=== PATIENT | female | born 1970 | race Caucasian/White ===

== ENCOUNTER → 2018-03-09 | Outpatient (CLI) | payer OTHER ==
[~2018-03-09] MED LIST: CYCL-331 PO; PRED50TA PO
--- NOTE | 2018-03-23 10:01 | RAD ---
DATE: 03/09/2018 EXAM: DIGITAL SCREEN BILAT W/CAD HISTORY: Routine screening COMPARISON: 03/06/2016, 12/04/2012 This study was interpreted with the benefit of Computerized Aided Detection (CAD). Breast Density: SCATTERED The breast parenchyma shows scattered fibroglandular densities. Breast parenchyma level B. FINDINGS: There is mild breast asymmetry with increased densities superolaterally in the left breast compared to the right. This was also evident on previous studies including the 12/04/2012 exam. This is probably a normal variant or may be related to previous right breast surgery. No new or enlarging breast densities are seen. No suspicious microcalcifications are evident. IMPRESSION: Stable mammograms without evidence of malignancy. BI-RADS CATEGORY: 2 BENIGN FINDING(S) RECOMMENDED FOLLOW-UP: 12M 12 MONTH FOLLOW-UP PQRS compliance statement: Patient information was entered into a reminder system with a target due date for the next mammogram. Mammography is a sensitive method for finding small breast cancers, but it does not detect them all and is not a substitute for careful clinical examination. A negative mammogram does not negate a clinically suspicious finding and should not result in delay in biopsying a clinically suspicious abnormality. "Our facility is accredited by the [employer] Mammography [employer]."
== END | disposition home or self-care (01) ==
LOC: MAMMO 12:40
PROVIDERS: ATTEND Family Medicine
DX: Z12.31 Encounter for screening mammogram for malignant neoplasm of breast (principal)
CPT/HCPCS: 77067

== ENCOUNTER → 2019-07-02 | Outpatient (CLI) | payer OTHER ==
--- NOTE | 2019-07-02 16:44 | RAD ---
EXAM: Cervical spine, 4 views; lumbar spine, 3 views; thoracic spine, 3 views. HISTORY: Scoliosis. Pain. COMPARISON: 05/22/2016 FINDINGS: Cervical spine: There is cervical kyphosis. There is no listhesis. There is degenerative endplate remodeling with anterior spurring primarily at C5-C6 and C6-C7. No fracture or suspicious osseous lesion is seen. Thoracic spine: 3 views of the thoracic spine are obtained. There is thoracic dextroscoliosis centered at T7-T8. This measures approximately 13 degrees. There are 12 rib-bearing thoracic vertebral segments. No segmentation anomaly is seen. There is no listhesis. The vertebral altamirano are normal in height and the disc spaces are preserved. Lumbar spine: 3 views of the lumbar spine are obtained. There are 5 nonrib-bearing vertebral segments. There is no listhesis. The vertebral bodies are normal in height and the disc spaces are preserved. IMPRESSION: 1. Thoracic scoliosis measuring approximately 13 degrees and centered at the T7-T8 level. 2. Mild cervical kyphosis and degenerative change involving the cervical spine, primarily at C5-C6 and C6-C7. Electronically signed by: Martha Mocteuzma MD (07/02/2019 4:41 PM) [id number]
== END ==
LOC: DXRAD 11:32
PROVIDERS: ATTEND Family Medicine
DX: M41.84 Other forms of scoliosis, thoracic region (principal); M47.812 Spondylosis without myelopathy or radiculopathy, cervical region
CPT/HCPCS: 72040; 72072; 72100

== ENCOUNTER → 2020-03-07 | Outpatient (CLI) | payer OTHER ==
--- NOTE | 2020-03-07 16:11 | RAD ---
DATE: 03/07/2020 9:30 AM EXAM: DIGITAL SCREEN BILAT W/CAD HISTORY: Screening COMPARISON: 03/09/2018 Bilateral full field craniocaudal and mediolateral oblique images were obtained using digital technique. This study was interpreted with the benefit of Computerized Aided Detection (CAD). FINDINGS: Breast Density: SCATTERED The breast parenchyma shows scattered fibroglandular densities. Breast parenchyma level B No suspicious masses, microcalcifications or architectural distortion is present to suggest malignancy in either breast. The visualized axillae are unremarkable. IMPRESSION: No mammographic evidence of malignancy. BI-RADS CATEGORY: 1 NEGATIVE RECOMMENDED FOLLOW-UP: 12M 12 MONTH FOLLOW-UP Annual screening mammography is recommended, unless clinically indicated sooner based on symptoms or change in physical exam. PQRS compliance statement: Patient information was entered into a reminder system with a target due date for the next mammogram. Mammography is a sensitive method for finding small breast cancers, but it does not detect them all and is not a substitute for careful clinical examination. A negative mammogram does not negate a clinically suspicious finding and should not result in delay in biopsying a clinically suspicious abnormality. "Our facility is accredited by the [employer] Mammography Program."
== END ==
LOC: MAMMO 09:08
PROVIDERS: ATTEND Family Medicine
DX: Z12.31 Encounter for screening mammogram for malignant neoplasm of breast (principal)
CPT/HCPCS: 77067

== ENCOUNTER 2020-05-25 02:40 | Emergency (ER) | payer SELFPAY ==
[~2020-05-25] VITALS: Ht 162.6 cm; Wt 60.0 kg
--- NOTE | 2020-05-25 02:44 | PHYS DOC ---
Past History Past Medical History: Anemia, Anxiety, Constipation, Depression, GERD, Ovarian Cyst, Schizophrenia, UTI Past Medical History Scoliosis Past Surgical History: Tubal ligation General Adult HPI: HPI: ".. I ve been a little off the last couple days..but tonight I started getting this really severe pain up here.. Rt.flank...stomach.. and Rt. upper... it come on really severe...a couple of times.. I almost wanted to vomit.. I finally called my mom..." Patient is a 50 year old female who presents with above hx and complaints severe upper right quadrant flank and abdomen pain. No history of trauma. No history of fever or chills. Has had recent malaise and myalgia complaints. No recent travel. No specific ill contacts. No history of bad food intake. No one else has gotten ill eating the same food in the household. Patient does have past medical history of ovarian cysts. Patient denies prior history of kidney stones or gallbladder issues. There is a strong family history of kidney stones as well as gallstones. Patient normally follows at [facility]. Has had a tubal ligation. Patient is on her menses currently. No history of endometriosis. No history of STDs. Has had approximately 15 lifetime sexual partners. No history of vaginal discharge. Prior to onset of menses. Has had 4 pregnancies 1 miscarriage 3 deliveries. No history of immunosuppression. No history of contact with ill animals. Has had normal stools. Patient has had a history of anxiety disorder, panic attacks and schizoaffective disorder. Patient did have a severe episode of cat scratch illness or infection number years ago. Patient patient does have a history of scoliosis. Patient does have past history of constipation, states her stools have been regular the last few days. Stools have been normal color. No findings of acute GI bleed or dark tarry stools. Patient not had a EGD or colonoscopy. Review of Systems: Review of Systems: Constitutional: Denies fever or chills Eyes: Denies change in visual acuity HENT: Denies nasal congestion or sore throat Respiratory: Denies cough or shortness of breath Cardiovascular: Denies chest pain or edema GI: Complains of severe right upper quadrant and flank abdominal pain, nausea,. Denies vomiting, bloody stools or diarrhea : Denies dysuria Musculoskeletal: Right upper quadrant flank back pain . Integument: Denies rash Neurologic: Denies headache, focal weakness or sensory changes Endocrine: Denies polyuria or polydipsia Lymphatic: Denies swollen glands Psychiatric: History of depression or anxiety Family History: Family History: Gallbladder disease and renal stones and brother and father Current Medications: Current Meds: See nursing for home meds Allergies: Allergies: Allergies Coded Allergies Type Severity Reaction Last Updated Verified erythromycin base Allergy Unknown 03/18/18 Yes iodine Allergy Unknown 03/18/18 Yes morphine Allergy Unknown 03/18/18 Yes Physical Exam: PE: Constitutional: In moderate acute distress, non-toxic appearance. [] HENT: Normocephalic, atraumatic, bilateral external ears normal, oropharynx moist, no oral exudates, nose normal. [] Eyes: PERRLA, EOMI, conjunctiva normal, no discharge. Glasses Neck: Normal range of motion, no tenderness, supple, no stridor. [] Cardiovascular:Heart rate regular rhythm, no murmur [] Lungs & Thorax: Bilateral breath sounds equal at apex on auscultation [] Abdomen: Bowel sounds decreased, soft, right upper quadrant and epigastric tenderness, no masses, no pulsatile masses. Distended. Mild right flank pain on percussion. Rebound to right upper quadrant. Declines pelvic /rectal exam at this time. Old surgery scars. Skin: Warm, dry, no erythema, no rash. Multiple tattoos Back: No tenderness, no CVA tenderness. [] Extremities: No tenderness, no cyanosis, no clubbing, ROM intact, no edema. Positive psoas on the right with pain radiating to right upper quadrant Neurologic: Alert and oriented X 3, normal motor function, normal sensory function, no focal deficits noted. [] Psychologic: Affect anxious, judgement normal, mood normal. [] EKG: EKG: My interpretation EKG shows a sinus rhythm at 80 bpm. No findings acute STEMI with contralateral changes. [] Radiology/Procedures: Radiology/Procedures: [address] [address] IMAGING REPORT Signed PATIENT: DEB MILLAN DACCOUNT: [id number] : 1970 LOCATION: ER AGE: 50 SEX: F EXAM STATUS: REG ER ORD. PHYSICIAN: LUBA HARRIS MD REASON: Right sided abdomen pain: Readi Cat 900ml(allergy to iodine) PROCEDURE: CT ABD PEL W/ORAL CONTRST ONLY CT abdomen and pelvis without contrast HISTORY: Right-sided abdominal pain. PQRS statement: CT scans at this facility use dose reduction including either automated exposure control, iterative reconstructions, and /or weight based radiation dosing via mA and kV modification when appropriate to reduce radiation dose to as low as reasonably achievable. Abdomen findings: Mild atelectasis left lung base at the inferior lingula. Small subcentimeter left hepatic lobe hypodensity too small to characterize as well as a 1 cm hypodense lesion of the spleen which is nonspecific, statistically these most likely small cysts or hemangiomas. Adrenals, kidneys, pancreas and gallbladder are unremarkable. Large volume of stool. Appendix is negative. No obstruction or inflammation the GI tract. No abdominal fluid. Pelvis findings: Globular enlarged retroverted uterus. 1.5 cm cystic focus at the cervix presumably nabothian cyst. Indistinct density of the posterior uterine fundus raising the possibility of an underlying 3 cm mass perhaps a leiomyoma. Ovaries, bladder, rectum and bones are unremarkable. Pelvic phleboliths, it is difficult to visualize the distal ureters to the surrounding pelvic vasculature although no discrete ureteral calculi are evident. IMPRESSION: 1. No acute process. Appendix is negative. 2. Large volume of stool likely constipation. 3. Enlarged uterus. Indistinct 3 cm density of the posterior uterine fundus may indicate a mass, likely a leiomyoma. This could be further assessed with pelvic sonography. Electronically signed by: Shelby Hoyt MD (05/25/2020 6:06 AM) [facility] DICTATED AND SIGNED BY: SHELBY HOYT MD DATE: 05/25/20 0559 CC: LUBA HARRIS MD; PCP,NO ~MTH0 0 [][address] [address] IMAGING REPORT Signed PATIENT: DEB MILLAN DACCOUNT: [id number] : 1970 LOCATION: ER AGE: 50 SEX: F EXAM STATUS: REG ER ORD. PHYSICIAN: LUBA HARRIS MD REASON: Right sided pain PROCEDURE: ACUTE ABDOMEN SERIES PA chest and AP upright supine abdomen x-rays HISTORY: Right-sided abdominal pain. FINDINGS: Heart size normal. Mediastinal silhouette normal. Thoracic spine scoliosis. No pulmonary opacities or pleural effusions. No pneumoperitoneum. Large volume of stool likely constipation. No dilated small bowel loops. Numerous pelvic calcifications presumably phleboliths although distal urinary calculi be difficult to exclude as well. IMPRESSION: Constipation with a large volume of stool. No small bowel obstruction. No acute process in the chest Electronically signed by: Shelby Hoyt MD (05/25/2020 4:09 AM) [facility] DICTATED AND SIGNED BY: SHELBY HOYT MD DATE: 05/25/20405 CC: LUBA HARRIS MD; PCP,NO ~MTH0 0 Heart Score: HEART Score for Chest Pain: HEART Score for Chest Pain Response (Comments) Value History Slighlty/Non-Suspicious 0 ECG Normal 0 Age >45 - < 65 1 Risk Factors 1 or 2 Risk Factors 1 Troponin < Normal Limit 0 Total 2 Risk Factors: Risk Factors: DM, Current or recent (<one month) smoker, HTN, HLP, family history of CAD, obesity. Risk Scores: Score 0 - 3: 2.5% MACE over next 6 weeks - Discharge Home Score 4 - 6: 20.3% MACE over next 6 weeks - Admit for Clinical Observation Score 7 - 10: 72.7% MACE over next 6 weeks - Early Invasive Strategies Course & Med Decision Making: Course & Med Decision Making Pertinent Labs and Imaging studies reviewed. (See chart for details) Vies patient no acute surgical process determined at this time. Patient to push clear fluids. Fruit juices. Take multivitamin. Follow-up labs and ED work-up with primary care. Stay on a clear fluid the next 48 hours. Recommend patient take any dose of milk of mag. Patient currently refusing meds here. Patient had reexamined no improvement the next 2 days. Avoid milk products or solids for 2 days. Consider evaluation with EGD/colonoscopy for history of abdomen pain. Return if any concerns. Take Pepcid 20 mg twice a day. Patient reports provement in symptoms at time of discharge. Ambulatory without problems. Impression: 1. Abdomen Pain 2. Anemia Hgm=8.8, Microcytic, Hypochromic 61/18 3. Mild hypokalemia 3.3 4. Constipation 5. Gastritis 6. Biliary colic [] Dragon Disclaimer: Dragon Disclaimer: This electronic medical record was generated, in whole or in part, using a voice recognition dictation system. Departure Departure: Referrals: PCP,NO (PCP) Scripts Famotidine (PEPCID) 20 Mg Tablet 20 MG PO BID for gastritis, #60 TAB Prov: LUBA HARRIS MD 05/25/20 Moody Disclaimer This chart was dictated in whole or in part using Voice Recognition software in a busy, high-work load, and often noisy Emergency Department environment. It may contain unintended and wholly unrecognized errors or omissions. Dragon Disclaimer This chart was dictated in whole or in part using Voice Recognition software in a busy, high-work load, and often noisy Emergency Department environment. It may contain unintended and wholly unrecognized errors or omissions. LUBA HARRIS MD May 25, 2020 02:44
[2020-05-25] MEDS ORDERED: ONDANSETRON PF 4 MG/2 ML VIAL. IVP ONE (03:15)
[2020-05-25] MEDS ORDERED: FAMOTIDINE 20 MG/2 ML VIAL IVP ONE (03:15)
[2020-05-25] MEDS ORDERED: KETOROLAC 30 MG/ML VIAL. IVP ONE (03:15)
[2020-05-25] MEDS ORDERED: IV RINGERS SOLUTION,LACTATED 1,000 ML IV SCH (03:15)
--- NOTE | 2020-05-25 03:28 | EKG ---
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
[2020-05-25 03:49] LABS: BACTERIA,URINE 0 /HPF (0-FEW); BILIRUBIN,URINE NEG (NEG); CLARITY,URINE CLEAR; COLOR,URINE YELLOW; GLUCOSE,URINE NEG (NEG); NITRITE,URINE NEG (NEG); RBC,URINE OCC /HPF (0-2); SQUAMOUS EPITHELIAL CELL,UR FEW /LPF; U PREG PATIENT NEGATIVE (NEG); UROBILINOGEN,URINE 0.2 mg/dL (0.2 mg/dL); WBC,URINE 0 /HPF (0-4)
[2020-05-25 03:55] LABS: CALCIUM 8.3 mg/dL (8.5-10.1); CREATININE 0.7 mg/dL (0.6-1.0); GFR 89.3; POTASSIUM 3.3 mmol/L (3.5-5.1)
[2020-05-25 03:57] LABS: BARBITURATES NEG (NEG); BENZODIAZEPINES NEG (NEG); CANNABINOIDS NEG (NEG); COCAINE NEG (NEG); METHADONE NEG (NEG); OPIATES NEG (NEG); PHENCYCLIDINE NEG (NEG)
[2020-05-25 03:57] LABS: BASO # 0.1 x10^3/uL (0.0-0.2); BASO % 1 % (0-3); EOS # 0.2 x10^3/uL (0.0-0.7); EOS % 3 % (0-3); HEMOGLOBIN 8.8 g/dL (12.0-15.5); LYMPH # 2.2 x10^3/uL (1.0-4.8); LYMPH % 32 % (24-48); MEAN CORPUSCULAR HEMOGLOBIN 18 pg (25-35); MEAN CORPUSCULAR HGB CONC 29 g/dL (31-37); MEAN CORPUSCULAR VOLUME 61 fL (79-100); MONO # 0.4 x10^3/uL (0.0-1.1); MONO % 6 % (0-9); NEUT # 3.9 x10^3uL (1.8-7.7); NEUT % 57 % (31-73); PLATELET COUNT 375 x10^3/uL (140-400); RED CELL DISTRIBUTION WIDTH 19.6 % (11.5-14.5); WHITE BLOOD COUNT 6.7 x10^3/uL (4.0-11.0)
[2020-05-25 04:00] LABS: ALBUMIN 3.9 g/dL (3.4-5.0); DIRECT BILIRUBIN 0.1 mg/dL (0.0-0.2); TOTAL BILIRUBIN 0.1 mg/dL (0.2-1.0); TOTAL PROTEIN 7.6 g/dL (6.4-8.2)
[2020-05-25 04:06] LABS: AMPHETAMINE/METHAMPHETAMINE NEG (NEG)
--- NOTE | 2020-05-25 04:11 | RAD ---
PA chest and AP upright supine abdomen x-rays HISTORY: Right-sided abdominal pain. FINDINGS: Heart size normal. Mediastinal silhouette normal. Thoracic spine scoliosis. No pulmonary op acities or pleural effusions. No pneumoperitoneum. Large volume of stool likely constipation. No dila leila small bowel loops. Numerous pelvic calcifications presumably phleboliths although distal urinary calculi be difficult to exclude as well. IMPRESSION: Constipation with a large volume of stool. No small bowel obstruction. No acute process i n the chest Electronically signed by: Mathew Collazo MD (05/25/2020 4:09 AM) [facility]
[2020-05-25 04:12] LABS: HYPOCHROMIA MOD; MICROCYTOSIS MOD; OVALOCYTES MOD; PLT ESTIMATE ADEQUATE (ADEQUATE)
[2020-05-25 04:26] VITALS: BP 123/77
[2020-05-25] MEDS ORDERED: methylPREDNISolone SOD SUCC PF 125 MG/2 ML VIAL. IV ONE (04:30)
[2020-05-25] MEDS ORDERED: diphenhydrAMINE 50 MG/ML VIAL IVP ONE (04:30)
[2020-05-25] MEDS ORDERED: BARIUM SULFATE 2.1% 450 ML SUSP PO ONE ×2 (04:45)
--- NOTE | 2020-05-25 06:09 | RAD ---
CT abdomen and pelvis without contrast HISTORY: Right-sided abdominal pain. PQRS statement: CT scans at this facility use dose reduction including either automated exposure cont rol, iterative reconstructions, and /or weight based radiation dosing via mA and kV modification when appropriate to reduce radiation dose to as low as reasonably achievable. Abdomen findings: Mild atelectasis left lung base at the inferior lingula. Small subcentimeter left h epatic lobe hypodensity too small to characterize as well as a 1 cm hypodense lesion of the spleen wh ich is nonspecific, statistically these most likely small cysts or hemangiomas. Adrenals, kidneys, pa ncreas and gallbladder are unremarkable. Large volume of stool. Appendix is negative. No obstruction or inflammation the GI tract. No abdominal fluid. Pelvis findings: Globular enlarged retroverted uterus. 1.5 cm cystic focus at the cervix presumably n abothian cyst. Indistinct density of the posterior uterine fundus raising the possibility of an under lying 3 cm mass perhaps a leiomyoma. Ovaries, bladder, rectum and bones are unremarkable. Pelvic phle boliths, it is difficult to visualize the distal ureters to the surrounding pelvic vasculature althou gh no discrete ureteral calculi are evident. IMPRESSION: 1. No acute process. Appendix is negative. 2. Large volume of stool likely constipation. 3. Enlarged uterus. Indistinct 3 cm density of the posterior uterine fundus may indicate a mass, like ly a leiomyoma. This could be further assessed with pelvic sonography. Electronically signed by: Mathew Collazo MD (05/25/2020 6:06 AM) [facility]
[2020-05-25] MEDS ORDERED: FAMO-63 PO (06:21)
== END 2020-05-25 06:30 | disposition home or self-care (01) ==
LOC: ER 02:40
DX: K29.70 Gastritis, unspecified, without bleeding (principal); K80.50 Calculus of bile duct without cholangitis or cholecystitis without obstruction; E87.6 Hypokalemia; K59.00 Constipation, unspecified; D64.9 Anemia, unspecified; F41.9 Anxiety disorder, unspecified; F31.9 Bipolar disorder, unspecified; K21.9 Gastro-esophageal reflux disease without esophagitis; F20.9 Schizophrenia, unspecified; Z87.440 Personal history of urinary (tract) infections; Z88.1 Allergy status to other antibiotic agents; Z88.5 Allergy status to narcotic agent; Z88.8 Allergy status to other drugs, medicaments and biological substances
CPT/HCPCS: 36415; 74022; 74176; 80048; 80076; 80307; 81001; 81025; 82150; 82550; 83690; 84484; 85025; 85610; 85730; 93005; 96361; 96374; 96375; 99285; J1200; J1885; J2405; J2930; J3490; J7120

== ENCOUNTER 2021-07-08 16:37 | Emergency (ER) | payer SELFPAY ==
[~2021-07-08] VITALS: Ht 152.4 cm; Wt 54.5 kg
[~2021-07-08 16:37] MED LIST changes: -CYCL-331 PO; +CYCL10TA19 PO; +FAMO-63 PO
[2021-07-08] MEDS ORDERED: IBUPROFEN 600 MG TABLET. PO ONE (17:00)
--- NOTE | 2021-07-08 17:23 | PHYS DOC ---
Past History Past Medical History: Anemia, Anxiety, Constipation, Depression, GERD, Ovarian Cyst, Schizophrenia, UTI Past Surgical History: Tubal ligation Smoking: Non-smoker Alcohol Use: None Drug Use: None General Adult EDM: Chief Complaint: ANKLE PROBLEM HPI: HPI: Patient is a 51-year-old female presenting to the emergency room after suffering blunt trauma to the right ankle. Patient was hiking for fossils when she planted her right foot next to a large rock that was lateral to her lateral malleoli. She pushed on an approximate "80 pound rock that was to her left which dislodged it from where it was lying causing it to fall and hit her medial leg 2 inches proximal to the medial malleoli. This crushed her leg between the larger rock and the 80 pound rock. She was in 8 out of 10 pain but was able to, with assistance of those who were there, hike 1 mile back to her car where she proceeded to come to the ER. At the time she also noted she had "electric-like shocks" into her foot and up to her knee when she was walking on it. Presentation the ankle is described as slightly numb but electric shock sensations still occur with slight movement of the foot. Denies ankle or leg swelling, tightness, coolness of the toes. Patient has never had prior ankle trauma or surgeries. Review of Systems: Review of Systems: Constitutional: Denies fever or chills Eyes: Denies redness or eye pain HENT: Denies nasal congestion or sore throat Respiratory: Denies cough or shortness of breath Cardiovascular: Denies chest pain or palpitations GI: Denies abdominal pain, nausea, or vomiting : Denies dysuria or hematuria Musculoskeletal: Right ankle pain that radiates to the foot and to the knee, states generalized mild joint pain Integument: Denies rash or skin lesions Neurologic: Endorses shock-like sensations in her right foot ankle and knee. Denies headache, focal weakness or sensory changes Complete systems were reviewed and found to be within normal limits, except as documented in this note. Current Medications: Current Meds: Current Medications Medications (Trade) Dose Ordered Sig/[place] Start Time Stop Time Status Last Admin Dose Admin Ibuprofen (Motrin) 600 mg 1X ONCE 07/08/21 17:00 07/08/21 17:01 DC 07/08/21 17:00 600 MG Allergies: Allergies: Allergies Coded Allergies Type Severity Reaction Last Updated Verified erythromycin base Allergy Unknown 07/08/21 Yes iodine Allergy Unknown 07/08/21 Yes morphine Allergy Unknown 07/08/21 Yes Physical Exam: PE: Constitutional: Well developed, well nourished, no acute distress, non-toxic appearance HENT: Normocephalic, atraumatic Eyes: Conjunctiva normal, no discharge Neck: Normal range of motion, supple Lungs & Thorax: No respiratory distress, equal chest rise and fall Skin: 2 cm x 1 cm centimeter area of mild erythema at rock impact site 2 inches proximal to the right medial malleoli, no signs of prior or active bleeding Extremities: Right ankle diminished range of motion in all planes, point tenderness at right medial malleoli and right lateral malleoli. Tenderness also appreciated anterior to medial malleoli. Plain pressure at these areas or ankle manipulation causes shock-like sensations circumferentially around the leg, up into the right knee and into the toes. Mild swelling present on leg laterally, no erythema appreciated, dorsalis pedis 2+, foot is warm without pallor compared to the left foot and leg. Neurologic: Alert and oriented X 3, no focal deficits noted Psychologic: Affect normal, judgment normal Current Patient Data: Vital Signs: Vital Signs Date Time Temp Pulse Resp B/P (MAP) Pulse Ox O2 Delivery O2 Flow Rate FiO2 07/08/21 16:57 98.2 97 18 142/88 (106) 100 Room Air EKG: EKG: [] Radiology/Procedures: Radiology/Procedures: PROCEDURE: ANKLE RIGHT 3V Exam performed: Right ankle 3 views. Indication: Medial right ankle pain, status post trauma Date of Service: 07/08/2021 4:57 PM. Comparison: None available Three views right ankle findings: Normal alignment of the ankle mortise is preserved. There is no acute fracture or dislocation. There is mild soft tissue swelling, no definite foreign body seen. Impression: Mild soft tissue swelling. No acute bony abnormality seen. Electronically signed by: Marika Darnell MD (07/08/2021 5:35 PM) [facility] Heart Score: C/O Chest Pain: N/A Course & Med Decision Making: Course & Med Decision Making Pertinent Imaging studies reviewed. (See chart for details) Patient presents with HPI and physical exam consistent for ankle sprain/blunt trauma. No clinical signs of compartment syndrome appreciated. Limb neurovascularly intact. Ice applied. X-ray obtained without acute fracture or dislocation. Marc wrap provided. Patient stable for discharge with outpatient follow-up with PCP/ankle specia list. Ankle specialist referral provided. Discussed findings and plan with patient, who acknowledges understanding and agreement. Moody Disclaimer: Moody Disclaimer: This electronic medical record was generated, in whole or in part, using a voice recognition dictation system. Splinting Splinting : Location: Right ankle Pre-Made Type: Marc bandage Pre-Proc Neuro Vasc Exam: normal Post-Proc Neuro Vasc Exam: normal, unchanged from pre-exam Departure Departure: Impression: Primary Impression: Ankle pain, right Qualified Codes: M25.571 - Pain in right ankle and joints of right foot Disposition: 01 HOME / SELF CARE / HOMELESS Condition: STABLE Referrals: PCPLIEN (PCP) GELA LILLY DPM Patient Instructions: Ankle Pain, Crutch Use, [id number], Elastic Bandage and RICE Additional Instructions: Ice area 20 minutes on then leave off next 20 minutes. Repeat several times daily for the next 2 days. Use [id number] ibuprofen and or Tylenol for pain or discomfort. NIKKIE SOLOMON DO Jul 08, 2021 17:23
--- NOTE | 2021-07-08 17:38 | RAD ---
Exam performed: Right ankle 3 views. Indication: Medial right ankle pain, status post trauma Date of Service: 07/08/2021 4:57 PM. Comparison: None available Three views right ankle findings: Normal alignment of the ankle mortise is preserved. There is no acute fracture or dislocation. There is mild soft tissue swelling, no definite foreign body seen. Impression: Mild soft tissue swelling. No acute bony abnormality seen. Electronically signed by: Marika Darnell MD (07/08/2021 5:35 PM) [facility]
[2021-07-08 17:40] VITALS: BP 137/84
== END 2021-07-08 17:45 | disposition home or self-care (01) ==
LOC: ER 16:37
DX: M25.571 Pain in right ankle and joints of right foot (principal); K21.9 Gastro-esophageal reflux disease without esophagitis; F20.9 Schizophrenia, unspecified; Z87.440 Personal history of urinary (tract) infections; Z86.2 Personal history of diseases of the blood and blood-forming organs and certain disorders involving the immune mechanism; Z88.1 Allergy status to other antibiotic agents; Z88.8 Allergy status to other drugs, medicaments and biological substances; Z88.5 Allergy status to narcotic agent
CPT/HCPCS: 73610; 99283